=== PATIENT | female | born 1990 | race Asian ===

== ENCOUNTER 2018-11-19 15:19 | Emergency (ER) | payer OTHER ==
[~2018-11-19] VITALS: Ht 167.6 cm; Wt 97.5 kg
[2018-11-19 15:32] VITALS: BP 138/70; TEMP 98.1
== END 2018-11-19 16:03 | disposition home or self-care (01) ==
LOC: ED 15:19
DX: T78.40XA Allergy, unspecified, initial encounter (principal)
CPT/HCPCS: 96372; 99283; J1200; J2930

== ENCOUNTER 2020-10-30 11:17 | Emergency (ER) | payer OTHER ==
[~2020-10-30] VITALS: Ht 167.6 cm; Wt 81.6 kg
[2020-10-30 13:08] VITALS: BP 124/62; TEMP 97.5
== END 2020-10-30 13:08 | disposition home or self-care (01) ==
LOC: ED 11:17
DX: S40.012A Contusion of left shoulder, initial encounter (principal); S80.02XA Contusion of left knee, initial encounter; S80.12XA Contusion of left lower leg, initial encounter; W18.39XA Other fall on same level, initial encounter; Y92.89 Other specified places as the place of occurrence of the external cause
CPT/HCPCS: 96372; 99283; J1885

== ENCOUNTER 2021-07-24 00:04 | Emergency (ER) | payer OTHER ==
[~2021-07-24] VITALS: Ht 167.6 cm; Wt 96.2 kg
[2021-07-24 01:05] VITALS: BP 118/66; TEMP 98.4
== END 2021-07-24 01:05 | disposition home or self-care (01) ==
LOC: ED 00:04
DX: G44.209 Tension-type headache, unspecified, not intractable (principal)
CPT/HCPCS: 96372; 99282; 99283; J1885

== ENCOUNTER 2021-09-01 17:38 | Emergency (ER) | payer OTHER ==
[~2021-09-01] VITALS: Ht 167.6 cm; Wt 81.6 kg
[2021-09-01 17:45] VITALS: TEMP 98.3
[2021-09-01 19:39] VITALS: BP 110/70
== END 2021-09-01 19:41 | disposition home or self-care (01) ==
LOC: ED 17:38
DX: B34.9 Viral infection, unspecified (principal); U07.1 COVID-19
CPT/HCPCS: 87502; 87635; 99283; U0003